=== PATIENT | female | born 1970 | race Caucasian/White ===

== ENCOUNTER 2017-08-11 23:51 | Emergency (ER) | payer OTHER | END 2017-08-12 01:44 | disposition home or self-care (01) | LOC: FTE 23:51 | DX: J02.9 Acute pharyngitis, unspecified (principal); R11.0 Nausea | CPT/HCPCS: 99284; Z7502 ==

== ENCOUNTER 2018-08-23 19:06 | Emergency (ER) | payer OTHER ==
[2018-08-23 19:45] LABS: URINE BLOOD (Dip) POC Trace-intact (NEGATIVE); URINE GLUCOSE (Dip) POC Negative (NEGATIVE); URINE KETONES (Dip) POC Negative (NEGATIVE); URINE LEUKOCYTE EST (Dip) POC Negative (NEGATIVE); URINE NITRITE (Dip) POC Negative (NEGATIVE); URINE TOTAL PROTEIN POC Negative (NEGATIVE)
[2018-08-23] MEDS: IBUPROFEN 800 MG TAB PO (19:48)
[2018-08-23] MEDS: LEVOFLOXACIN 750 MG TABLET PO (19:48)
== END 2018-08-23 20:31 | disposition home or self-care (01) ==
LOC: E/R 19:06
DX: J40 Bronchitis, not specified as acute or chronic (principal); R07.9 Chest pain, unspecified
CPT/HCPCS: 71045; 81003; 81025; 87400; 93005; 99285-25